=== PATIENT | female | born 1945 | race Caucasian/White ===

== ENCOUNTER 2016-05-20 16:17 | Inpatient (IN) | payer SELFPAY ==
[~2016-05-20 16:17] MED LIST: BUPIVACAINE HCL/PF 0.5% (5MG/ML) 10 ML VIAL IJ ONE
[2016-05-20] MEDS ORDERED: SODIUM CHLORIDE 1,000 ML IV STA (16:50)
[2016-05-20] MEDS ORDERED: morphine CARPU-JECT 2 MG/1 ML DISP.SYRIN IVPUSH ONE ×3 (16:50→23:27)
--- NOTE | 2016-05-20 17:06 | PDOC ---
History of Present Illness - General History Source: Patient Exam Limitations: No Limitations <Eric Fernandez - Last Filed: 05/20/16 20:30> - General History Source: Patient, Family, Old Records Exam Limitations: No Limitations - History of Present Illness Initial Comments: 05/20/16 17:26 The patient is a 70 year old female, with a significant past medical history of questionable HTN, who presents to the emergency department with right flank pain onset today while at [employer]. She describes her pain as ranging from mild to moderate, with radiation to the right lower quadrant. She denies any modifying factors. She notes that she took Tylenol for the pain, with minimal relief of her symptoms. The patient denies chest pain, shortness of breath, headache and dizziness. Denies fever, chills, nausea, vomit, diarrhea and constipation. Denies dysuria, frequency, urgency and hematuria. Allergies: None Past surgical history: None reported Social history: No alcohol, tobacco or drug use reported <Vu Roberson - Last Filed: 05/20/16 20:33> - General Chief Complaint: Pain, Acute Stated Complaint: PAIN, ACUTE Time Seen by Provider: 05/20/16 16:39 Past History - Past Medical History HTN: Yes (? no taking any meds, has no PMD) - Psycho/Social/Smoking Cessation Hx Suicidal Ideation: No Smoking History: Never smoked Information on smoking cessation initiated: No Hx Alcohol Use: No Drug/Substance Use Hx: No Substance Use Type: None <Eric Fernandez - Last Filed: 05/20/16 20:30> <Vu Roberson - Last Filed: 05/20/16 20:33> - Past Medical History Allergies/Adverse Reactions: Allergies Allergy/AdvReac Type Severity Reaction Status Date / Time No Known Allergies Allergy Verified 05/20/16 16:22 Home Medications: Ambulatory Orders NK [No Known Home Medication] 05/20/16 Review of Systems - Review of Systems Able to Perform ROS?: Yes Comments:: 05/20/16 17:25 GENERAL/CONSTITUTIONAL: No fever or chills. No weakness. HEAD, EYES, EARS, NOSE AND THROAT: No change in vision. No ear pain or discharge. No sore throat. CARDIOVASCULAR: No chest pain or shortness of breath RESPIRATORY: No cough, wheezing, or hemoptysis. GASTROINTESTINAL: +Right lower quadrant pain. No nausea, vomiting, diarrhea or constipation. GENITOURINARY: +Right flank pain. No dysuria, frequency, or change in urination. MUSCULOSKELETAL: No joint or muscle swelling or pain. No neck or back pain. SKIN: No rash NEUROLOGIC: No headache, vertigo, loss of consciousness, or change in strength/ sensation. ENDOCRINE: No increased thirst. No abnormal weight change HEMATOLOGIC/LYMPHATIC: No anemia, easy bleeding, or history of blood clots. ALLERGIC/IMMUNOLOGIC: No hives or skin allergy. <Vu Roberson - Last Filed: 05/20/16 20:33> *Physical Exam - Vital Signs Last Vital Signs Temp Pulse Resp BP Pulse Ox 98.1 F 83 19 150/81 93 L 05/20/16 16:19 05/20/16 16:19 05/20/16 16:19 05/20/16 16:19 05/20/16 16:19 <Eric Fernandez - Last Filed: 05/20/16 20:30> - Vital Signs Last Vital Signs Temp Pulse Resp BP Pulse Ox 98.1 F 83 19 150/81 93 L 05/20/16 16:19 05/20/16 16:19 05/20/16 16:19 05/20/16 16:19 05/20/16 16:19 - Physical Exam Comments: 05/20/16 17:25 GENERAL: Awake, alert, and fully oriented, in no acute distress HEAD: No signs of trauma, normocephalic, atraumatic EYES: PERRLA, EOMI, sclera anicteric, conjunctiva clear ENT: Auricles normal inspection, hearing grossly normal, nares patent, oropharynx clear without exudates. Moist mucosa NECK: Normal ROM, supple, no lymphadenopathy, JVD, or masses LUNGS: No distress, speaks full sentences, clear to auscultation bilaterally HEART: Regular rate and rhythm, normal S1 and S2, no murmurs, rubs or gallops, peripheral pulses normal and equal bilaterally. ABDOMEN: +Mid right abdominal tenderness to palpation. Soft, normoactive bowel sounds. No guarding, no rebound. No masses MUSCULOSKELETAL: +Right CVA tenderness. EXTREMITIES: Normal inspection, Normal range of motion, no edema. No clubbing or cyanosis. NEUROLOGICAL: Cranial nerves II through XII grossly intact. Normal speech, normal gait, no focal sensorimotor deficits SKIN: Warm, Dry, normal turgor, no rashes or lesions noted. <Vu Roberson - Last Filed: 05/20/16 20:33> ED Treatment Course - LABORATORY CBC & Chemistry Diagram: 05/20/16 17:50 05/20/16 17:50 - RADIOLOGY Radiology Studies Ordered: Category Date Time Status SPIRAL- RENAL-STONE CT [CT] Stat CT Scan 05/20/16 16:50 Ordered <Eric Fernandez - Last Filed: 05/20/16 20:30> - LABORATORY CBC & Chemistry Diagram: 05/20/16 17:50 05/20/16 17:50 - RADIOLOGY Radiograph Interpretation: 05/20/16 20:31 CT spiral stone without contrast Reviewed by: Dr. Sonny Ambriz Impression: Acute appendicitis is identified. No abscess is seen. <Vu Roberson - Last Filed: 05/20/16 20:33> Medical Decision Making - Medical Decision Making 05/20/16 17:01 A portion of this note was written by my scribe, under my supervision. Vital Signs Temp Pulse Resp BP Pulse Ox 98.1 F 83 19 150/81 93 L 05/20/16 16:19 05/20/16 16:19 05/20/16 16:19 05/20/16 16:19 05/20/16 16:19 70 year old female with no past medical history presents with R flank pain radiating to RLQ pain since this morning. Patient woke up this morning. States that the pain is constant. No nausea, vomiting, dysuria, hematuria, fevers. Denies prior history of kidney stones. Differential includes renal colic vs. pyelonephritis vs. less likely appendicitis. Labs, UA, spiral CT and reassess. 05/20/16 20:30 CBC, BMP 05/20/16 17:50 05/20/16 17:50 CMP Sodium 137 mmol/L (136-145) 05/20/16 17:50 Potassium 3.9 mmol/L (3.5-5.1) 05/20/16 17:50 Chloride 98 mmol/L (98-107) 05/20/16 17:50 Carbon Dioxide 28 mmol/L (21-32) 04/12/17 17:50 Anion Gap 11 (8-16) 05/20/16 17:50 BUN 10 mg/dL (7-18) 05/20/16 17:50 Creatinine 0.9 mg/dL (0.55-1.02) 05/20/16 17:50 Creat Clearance w eGFR > 60 (>60) 05/20/16 17:50 Random Glucose 112 mg/dL (74-106) H 05/20/16 17:50 Calcium 8.9 mg/dL (8.5-10.1) 05/20/16 17:50 Total Bilirubin 0.7 mg/dL (0.2-1.0) 05/20/16 17:50 AST 24 U/L (15-37) 05/20/16 17:50 ALT 21 U/L (12-78) 05/20/16 17:50 Alkaline Phosphatase 95 U/L (45-117) 05/20/16 17:50 Creatine Kinase 119 IU/L (26-192) 05/20/16 17:24 Troponin I < 0.02 ng/ml (0.00-0.05) 05/20/16 17:24 Total Protein 8.7 g/dl (6.4-8.2) H 05/20/16 17:50 Albumin 3.9 g/dl (3.4-5.0) 05/20/16 17:50 Lipase 126 U/L (73-393) 05/20/16 17:50 CT scan c/w appendicitis. Zosyn ordered. [facility] surgical team paged. Pt admitted to med/surg admission under Dr. Mckenna. Case discussed in detail with admitting physician including history, physical exam and ancillary studies. Admitting physician has assumed care for the patient, will follow all pending diagnostics and will complete the evaluation and treatment. <Eric Fernandez - Last Filed: 05/20/16 20:30> - Medical Decision Making 05/20/16 20:28 Dr. Tin Meyers was called regarding the patient at 8:24pm Dr. Meyers was consulted regarding the patient at 8:32pm [phone] <Vu Roberson - Last Filed: 05/20/16 20:33> *DC/Admit/Observation/Transfer - Discharge Dispostion Admit: Yes <Eric Fernandez - Last Filed: 05/20/16 20:30> - Attestations Scribe Attestion: 05/20/16 17:25 Documentation prepared by Vu Roberson, acting as center medical director for Eric Fernandez MD <Vu Roberson - Last Filed: 05/20/16 20:33> Diagnosis at time of Disposition: Appendicitis Qualifiers: Appendicitis type: acute appendicitis Acute appendicitis type: unspecified acute appendicitis type Qualified Code(s): K35.80 - Unspecified acute appendicitis
[2016-05-20] MEDS ORDERED: morphine CARPU-JECT 2 MG/1 ML DISP.SYRIN ONE (17:34)
[2016-05-20 18:01] LABS: BASOPHIL 0.4 % (0-2.0); EOSINOPHIL 0.1 % (0-4.5); MCH 29.1 pg (25.7-33.7); MCHC 33.1 g/dl (32.0-36.0); MEAN CELL VOLUME 87.8 fl (80-96); MEAN PLT VOLUME 7.9 fl (7.5-11.1); NEUTROPHILS 89.3 % (42.8-82.8); PLATELET COUNT 260 K/MM3 (134-434); RDW 16.1 % (11.6-15.6); WHITE BLOOD COUNT 12.9 K/mm3 (4.0-10.0)
[2016-05-20 18:05] LABS: URINE APPEARANCE CLEAR; URINE BILIRUBIN NEGATIVE (NEGATIVE); URINE COLOR LTYELLOW; URINE GLUCOSE (UA) NEGATIVE (NEGATIVE); URINE KETONE NEGATIVE (NEGATIVE); URINE LEUK ESTERASE NEGATIVE (NEGATIVE); URINE NITRITE NEGATIVE (NEGATIVE); URINE PROTEIN NEGATIVE (NEGATIVE); URINE UROBILINOGEN NEGATIVE E.U./dl (0.2-1.0)
[2016-05-20 18:24] LABS: URINE BLOOD 1+ (NEGATIVE)
[2016-05-20 18:33] LABS: ALBUMIN 3.9 g/dl (3.4-5.0); ALK PHOS 95 U/L (45-117); ANION GAP 11 (8-16); BILIRUBIN,TOTAL 0.7 mg/dL (0.2-1.0); CALCIUM 8.9 mg/dL (8.5-10.1); CO2 28 mmol/L (21-32); CREATININE 0.9 mg/dL (0.55-1.02); GLUCOSE,RANDOM 112 mg/dL (74-106); SGOT/AST 24 U/L (15-37); SGPT/ALT 21 U/L (12-78); TOT PROT 8.7 g/dl (6.4-8.2)
[2016-05-20 18:41] LABS: TROPONIN I < 0.02 ng/ml (0.00-0.05)
[2016-05-20 19:09] LABS: URINE RBC 3 /hpf (0-3); URINE WBC 2 /hpf (3-5)
[2016-05-20] MEDS ORDERED: PIPERACILLIN/TAZOB 3.375 GM/50 ML PRE-DOCKED IVPB ONE ×2 (20:14→23:27)
[2016-05-20] MEDS ORDERED: morphine CARPU-JECT 2 MG/1 ML DISP.SYRIN IVPUSH PRN ×2 (21:06→23:27)
[2016-05-20] MEDS ORDERED: SODIUM CHLORIDE 1,000 ML IV SCH (21:15)
--- NOTE | 2016-05-20 21:18 | HP ---
CHIEF COMPLAINT: Abdominal pain PCP: none HISTORY OF PRESENT ILLNESS: This is a 70 year old female with a questionable history of HTN who presented to the ED with right flank pain radiating to her RLQ since 5am. Pt denies N/V/D and states she is otherwise feeling fine. ER course was notable for: (1) WBC 12.9 (2) CT c/w acute appendicitis Recent Travel: pt denies PAST MEDICAL HISTORY: HTN as per pt, but never took any medications for it. PAST SURGICAL HISTORY: pt denies Social History: Smoking: previous, not in many years Alcohol: pt denies Drugs: pt denies Allergies No Known Allergies Allergy (Verified 05/20/16 16:22) HOME MEDICATIONS: 3 Medication Instructions Recorded NK [No Known Home Medication] 05/20/16 REVIEW OF SYSTEMS CONSTITUTIONAL: Absent: fever, chills, diaphoresis, generalized weakness, malaise, loss of appetite, weight change HEENT: Absent: rhinorrhea, nasal congestion, throat pain, throat swelling, difficulty swallowing, mouth swelling, ear pain, eye pain, visual changes CARDIOVASCULAR: Absent: chest pain, syncope, palpitations, irregular heart rate, lightheadedness , peripheral edema RESPIRATORY: Absent: cough, shortness of breath, dyspnea with exertion, orthopnea, wheezing, stridor, hemoptysis GASTROINTESTINAL: Present: abdominal pain Absent: abdominal distension, nausea, vomiting, diarrhea, constipation, melena, hematochezia GENITOURINARY: Absent: dysuria, frequency, urgency, hesitancy, hematuria, flank pain, genital pain MUSCULOSKELETAL: Absent: myalgia, arthralgia, joint swelling, back pain, neck pain SKIN: Absent: rash, itching, pallor HEMATOLOGIC/IMMUNOLOGIC: Absent: easy bleeding, easy bruising, lymphadenopathy, frequent infections ENDOCRINE: Absent: unexplained weight gain, unexplained weight loss, heat intolerance, cold intolerance NEUROLOGIC: Absent: headache, focal weakness or paresthesias, dizziness, unsteady gait, seizure, mental status changes, bladder or bowel incontinence PSYCHIATRIC: Absent: anxiety, depression, suicidal or homicidal ideation, hallucinations. PHYSICAL EXAMINATION Vital Signs - 24 hr 3 05/20/16 16:19 Temperature 98.1 F Pulse Rate 83 Respiratory 19 Rate Blood Pressure 150/81 O2 Sat by Pulse 93 L Oximetry (%) GENERAL: Awake, alert, and fully oriented, in no acute distress. HEAD: Normal with no signs of trauma. EYES: Pupils equal, round and reactive to light, extraocular movements intact, sclera anicteric, conjunctiva clear. No lid lag. EARS, NOSE, THROAT: Ears normal, nares patent, oropharynx clear without exudates. Moist mucous membranes. NECK: Normal range of motion, supple without lymphadenopathy, JVD, or masses. LUNGS: Breath sounds equal, clear to auscultation bilaterally. No wheezes, and no crackles. No accessory muscle use. HEART: Regular rate and rhythm, normal S1 and S2 without murmur, rub or gallop. ABDOMEN: Soft, not distended, normoactive bowel sounds, no guarding, no rebound , no masses. No hepatomegaly or splenomegaly. Tender RLQ MUSCULOSKELETAL: Normal range of motion at all joints. No bony deformities or tenderness. No CVA tenderness. UPPER EXTREMITIES: 2+ pulses, warm, well-perfused. No cyanosis. No clubbing. No peripheral edema. LOWER EXTREMITIES: 2+ pulses, warm, well-perfused. No calf tenderness. No peripheral edema. NEUROLOGICAL: Cranial nerves II-XII intact. Normal speech. Normal gait. PSYCHIATRIC: Cooperative. Good eye contact. Appropriate mood and affect. SKIN: Warm, dry, normal turgor, no rashes or lesions noted, normal capillary refill. Laboratory Results - last 24 hr 3 05/20/16 05/20/16 05/20/16 17:24 17:50 17:50 WBC 12.9 H RBC 5.20 Hgb 15.1 Hct 45.7 H MCV 87.8 MCHC 33.1 RDW 16.1 H Plt Count 260 MPV 7.9 Neutrophils % 89.3 H Lymphocytes % 7.9 L Monocytes % 2.3 L Eosinophils % 0.1 Basophils % 0.4 Sodium Potassium Chloride Carbon Dioxide Anion Gap BUN Creatinine Creat Clearance w eGFR Random Glucose Calcium Total Bilirubin AST ALT Alkaline Phosphatase Creatine Kinase 119 Troponin I < 0.02 Total Protein Albumin Lipase Urine Color Ltyellow Urine Appearance Clear Urine pH 7.0 Ur Specific [place] 1.014 Urine Protein Negative Urine Glucose (UA) Negative Urine Ketones Negative Urine Blood 1+ H Urine Nitrite Negative Urine Bilirubin Negative Urine Urobilinogen Negative Ur Leukocyte Esterase Negative Urine RBC 3 Urine WBC 2 Ur Epithelial Cells Few 3 05/20/16 17:50 WBC RBC Hgb Hct MCV MCHC RDW Plt Count MPV Neutrophils % Lymphocytes % Monocytes % Eosinophils % Basophils % Sodium 137 Potassium 3.9 Chloride 98 Carbon Dioxide 28 Anion Gap 11 BUN 10 Creatinine 0.9 Creat Clearance w eGFR > 60 Random Glucose 112 H Calcium 8.9 Total Bilirubin 0.7 AST 24 ALT 21 Alkaline Phosphatase 95 Creatine Kinase Troponin I Total Protein 8.7 H Albumin 3.9 Lipase 126 Urine Color Urine Appearance Urine pH Ur Specific [place] Urine Protein Urine Glucose (UA) Urine Ketones Urine Blood Urine Nitrite Urine Bilirubin Urine Urobilinogen Ur Leukocyte Esterase Urine RBC Urine WBC Ur Epithelial Cells Renal stone CT without contrast Clinical information: right flank pain radiating to RLQ multiplanar imaging was performed. There is mild fluid-filled distention of the appendix which also demonstrates mild concentric wall thickening. Periappendiceal edema is noted. No abscess is seen. There is no evidence of free intraperitoneal fluid, pneumoperitoneum or bowel obstruction. No evidence of urolithiasis or obstructive uropathy. Multiple gallbladder calculi are seen. The gallbladder otherwise demonstrates no definite abnormality. No biliary tract dilatation is seen. Small hiatal hernia. A 2.4 cm diverticulum is noted along the medial aspect of the second portion of the duodenal sweep. The liver, spleen, pancreas, adrenal glands and kidneys demonstrate no discrete noncontrast abnormality. There is no aortic aneurysm. No discrete lymphadenopathy is identified. There is no definite pelvic pathology. No gross small bowel abnormality is noted. IMPRESSION: Acute appendicitis is identified. No abscess is seen. Chest portable one view Clinical information: appendicitis No discrete infiltrate or pleural effusion is identified allowing for body habitus and portable technique. There is no definite enlargement of the cardiac silhouette given the AP projection of the study. Atherosclerotic aortic changes are noted. The mediastinum and ashwin demonstrate no obvious abnormality. Impression: No obvious radiographic abnormality is identified. ECG: NSR: Rate87, QTC 421, no ST/T changes ASSESSMENT/PLAN: 70yF with PMH of ?HTN presented with right flank pain radiating to RLQ. CT scan revealed acute appendicitis. She is being admitted for same. Acute appendicitis - zosyn 3.375mg Q8h, ID consult ordered for approval - surgical consult appreciated, likely will go to OR tonight - no medical contraindications to appendectomy. HTN - BP initially elevated, monitor and start anti-HTN if persistently elevated. DVT PPX - defer for now, start after surgery if LOS expected >48h FEN - NS @83cc/hr - Repeat BMP in am - NPO for now, advance diet postop as per surgery Dispo: Pt currently requires inpatient management of her emergent condition. Visit type - Emergency Visit Emergency Visit: Yes ED Registration Date: 05/20/16 Care time: The patient presented to the Emergency Department on the above date and was hospitalized for further evaluation of their emergent condition. - New Patient This patient is new to me today: Yes Date on this admission: 05/20/16 - Critical Care Critical Care patient: No
--- NOTE | 2016-05-20 21:37 | CONSULT ---
Consult Consult Specialty:: surgery Reason for Consultation:: appendicitis - History of Present Illness Chief Complaint: rlq pain History of Present Illness: pt with RLQ x 1 day. came into ER and had leukocytosis and CT showing appendicitis. - Alcohol/Substance Use Hx Alcohol Use: No - Smoking History Smoking history: Never smoked Home Medications - Allergies Allergies/Adverse Reactions: Allergies Allergy/AdvReac Type Severity Reaction Status Date / Time No Known Allergies Allergy Verified 05/20/16 16:22 - Home Medications Home Medications: Ambulatory Orders NK [No Known Home Medication] 05/20/16 Review of Systems - Review of Systems Constitutional: denies: Chills, Fever Eyes: denies: Blind Spots, Blurred Vision HENT: denies: Difficult Swallowing, Ear Discharge Neck: denies: Decreased ROM, Lumps Cardiovascular: denies: Chest Pain, Edema Respiratory: denies: Cough, Exercise Intolerance Gastrointestinal: reports: Abdominal Pain Genitourinary: denies: Burning, Discharge Breasts: denies: Pain, Skin Changes Musculoskeletal: denies: Back Pain, Crepitus Integumentary: denies: Blister, Bruising Neurological: denies: Change in LOC, Change in Speech Endocrine: denies: Excessive Sweating, Flushing Hematology/Lymphatic: denies: Easily Bruised, Excessive Bleeding Psychiatric: denies: Altered Sleep Pattern, Anxiety Physical Exam Vital Signs: Vital Signs Temperature 98.1 F 05/20/16 16:19 Pulse Rate 83 05/20/16 16:19 Respiratory Rate 19 05/20/16 16:19 Blood Pressure 150/81 05/20/16 16:19 O2 Sat by Pulse Oximetry (%) 93 L 05/20/16 16:19 Constitutional: Yes: No Distress, Calm Eyes: Yes: Conjunctiva Clear, EOM Intact HENT: Yes: Atraumatic, Normocephalic Neck: Yes: Supple, Trachea Midline Cardiovascular: Yes: Regular Rate and Rhythm Respiratory: Yes: Regular, CTA Bilaterally Gastrointestinal: Yes: Soft, Abdomen, Obese, Tenderness. No: Distention ...Rectal Exam: Yes: Deferred Renal/: No: CVA Tenderness - Left, CVA Tenderness - Right Breast(s): No: Nipple Inversion, Skin Changes Musculoskeletal: No: Joint Stiffness, Joint Swelling Extremities: No: Calf Tenderness, Erythema Integumentary: No: Erythema, Rash Neurological: Yes: Alert, Oriented Psychiatric: Yes: Alert, Oriented Imaging - Results Cat Scan: Report Reviewed Problem List - Problems (1) Appendicitis Assessment/Plan: for lap appy. r/b/a d/w pt and she understands and wishes to proceed. had discussion with aide of therapeutic recreation assistant at bedside. Code(s): K37 - UNSPECIFIED APPENDICITIS Qualifiers: Appendicitis type: acute appendicitis Acute appendicitis type: unspecified acute appendicitis type Qualified Code(s): K35.80 - Unspecified acute appendicitis
[2016-05-20] MEDS ORDERED: ROCURONIUM BROMIDE 50 MG/5 ML VIAL ONE (21:49)
[2016-05-20] MEDS ORDERED: SUCCINYLCHOLINE CHLORIDE 200 MG/10 ML VIAL ONE (21:49)
[2016-05-20] MEDS ORDERED: MIDAZOLAM HCL 2 MG/2 ML SINGLE DOSE VIAL ONE (21:49)
[2016-05-20] MEDS ORDERED: LIDOCAINE HCL/PF 2% SDV 5ML VIAL ONE (21:50)
[2016-05-20] MEDS ORDERED: ONDANSETRON 4 MG/2 ML VIAL ONE (22:15)
[2016-05-20] MEDS ORDERED: DEXAMETHASONE SOD PHOSPHATE 4 MG/1 ML VIAL ONE (22:15)
[2016-05-20] MEDS ORDERED: PHENYLEPHRINE HCL 10 MG/1 ML SINGLE DOSE VIAL ONE (22:31)
[2016-05-20] MEDS ORDERED: NEOSTIGMINE METHYLSULFATE 0.5 MG/ML - 10 ML MDV ONE (23:09)
[2016-05-20] MEDS ORDERED: KETOROLAC TROMETHAMINE 30 MG/1 ML VIAL ONE (23:10)
[2016-05-20] MEDS ORDERED: GLYCOPYRROLATE 0.2 MG/1 ML VIAL ONE (23:11)
[2016-05-20] MEDS ORDERED: BUPIVACAINE HCL/PF 0.5% (5MG/ML) 10 ML VIAL IJ ONE (23:11)
--- NOTE | 2016-05-20 23:17 | OP ---
Operative Note - Note: Operative Date: 05/20/16 Pre-Operative Diagnosis: appendicitis Operation: lap appendectomy Findings: appendicitis Post-Operative Diagnosis: Same as Pre-op Surgeon: Tin Meyers Anesthesia: General Estimated Blood Loss (mls): 5 Operative Report Dictated: Yes
[2016-05-20] MEDS ORDERED: OXYCODONE/APAP 5/325MG COMBO TABLET PO PRN ×2 (23:19)
[2016-05-20] MEDS ORDERED: MAGNESIUM HYDROX 2400MG/30ML ORAL SUSPENSION 30 ML CUP PO PRN (23:20)
[2016-05-20] MEDS ORDERED: oxyCODONE HCL 5 MG TABLET PO PRN ×2 (23:25→23:26)
[2016-05-20] MEDS ORDERED: ACETAMINOPHEN 325 MG TABLET (FP) PO PRN ×2 (23:25→23:26)
[2016-05-20] MEDS ORDERED: PROMETHAZINE HCL 25 MG/1 ML VIAL IVPUSH PRN (23:37)
[2016-05-20] MEDS ORDERED: HYDROmorphone HCL CARPU-JECT 1 MG/1 ML DISP.SYRIN IVPUSH PRN (23:37)
[2016-05-20] MEDS ORDERED: LACTATED RINGERS SOLUTION 1,000 ML IV SCH (23:45)
--- NOTE | 2016-05-21 01:06 | OP ---
DATE OF OPERATION: DATE OF DICTATION: 05/20/2016 PREOPERATIVE DIAGNOSIS: Appendicitis. POSTOPERATIVE DIAGNOSIS: Appendicitis. SURGERY: Laparoscopic appendectomy. SURGEON: Tin Meyers M.D. ANESTHESIA: General endotracheal anesthesia. ESTIMATED BLOOD LOSS: Minimal. OPERATIVE DETAILS: Patient was brought to the operating room after confirming name, date of , medical record number. She was placed in supine position with SCDs for DVT prophylaxis. She received appropriate perioperative antibiotics. She was then induced and intubated by the anesthesiologist. A Cho catheter was then placed under sterile conditions. She was then prepped and draped in the usual sterile fashion. A timeout was then performed. I marked off her left subcostal margin and 2 fingerbreadths below in the left upper quadrant. I created a small transverse incision with a 15 blade. I then placed a Veress needle inside the patient's abdomen, and then after 2 clicks insufflated the abdomen; however, I could not get good flow, and I was uncomfortable, as the abdominal wall was very thick, even though I was lifting up the skin with towel clamps. Therefore, I used an Optiview type trocar with a 5-mm, 0-degere scope, and then went directly into the abdomen while lifting it up anteriorly, and then once I got in the abdomen, I then insufflated the abdomen to a pressure of 15 mmHg. I then inspected the bowel, and there was no evidence of bowel injury. Then I placed a supraumbilical 12-mm trocar under direct vision and a 5-mm trocar in the left lower quadrant. It was very difficult to transilluminate the abdominal wall, because it was so massive, given her BMI of almost 40. At this point, the appendix and small bowel was tethered against the anterior abdominal wall. This was gently fractured off, and then I had to dissect the small bowel off the mesentery of the appendix, and there was quite a bit of induration, inflammation of the appendix. After carefully teasing it off, I then dissected the base of the appendix, and then fired a blue load staple at the base of the appendix, and then 2 white load staplers reduced to take the mesentery of the appendix. At this point, I placed it in a 10-mm specimen retrieval bag and sent it off the field for permanent examination. I then irrigated and aspirated out any fluid and was satisfied with the perfect hemostasis, and then I removed the appendix through the port, and then I took out the 12-mm trocar and closed it with a [id number] 0 Vicryl suture placed laparoscopically. Once I confirmed that there was no air leakage, the abdomen was then desufflated, the ports removed, and then I tied down on this [id number] Vicryl. There was some bleeding noted in the left lower quadrant, and I placed a U stitch of 3-0 chromic and this stopped all bleeding. Then I closed the left upper quadrant trocar with interrupted chromic in the dermal layer, and then the supraumbilical incision was closed with running subcutaneous Monocryl. Dermabond was then applied. The Cho catheter was then removed. All counts were correct. TIN MEYERS M.D. [id number]
[2016-05-21] MEDS: SODIUM CHLORIDE 1,000 ML IV SCH ×2 (01:28→06:32)
[2016-05-21] MEDS ORDERED: PIPERACILLIN/TAZOB 3.375 GM 50 ML IVPB SCH ×2 (02:00→06:30)
[2016-05-21 02:53] VITALS: BMI 35.2
[2016-05-21 08:13] LABS: BASOPHIL 0.1 % (0-2.0); MCH 29.1 pg (25.7-33.7); MCHC 33.1 g/dl (32.0-36.0); MEAN PLT VOLUME 8.3 fl (7.5-11.1); NEUTROPHILS 87.7 % (42.8-82.8); PLATELET COUNT 204 K/MM3 (134-434); RDW 16.1 % (11.6-15.6)
[2016-05-21 08:16] LABS: CALCIUM 7.9 mg/dL (8.5-10.1); COCKROFT - GAULT 102.408; CREATININE 0.8 mg/dL (0.55-1.02); PHOSPHOROUS 3.6 mg/dL (2.5-4.9)
--- NOTE | 2016-05-21 11:40 | EKG ---
Test Reason : Blood Pressure : / mmHG Vent. Rate : 087 BPM Atrial Rate : 087 BPM P-R Int : 182 ms QRS Dur : 092 ms QT Int : 350 ms P-R-T Axes : 049 -25 065 degrees QTc Int : 421 ms NORMAL SINUS RHYTHM NORMAL ECG NO PREVIOUS ECGS AVAILABLE Confirmed by BHAVIN MOORE MD ([id number]) on 05/21/2016 11:40:13 AM Referred By: Confirmed By:BHAVIN MOORE MD
--- NOTE | 2016-05-21 12:46 | PN ---
Progress Note, Physician Chief Complaint: less pain History of Present Illness: pt with less RLQ pain, still has some pain though. tolerating diet - Current Medication List Current Medications: Active Medications Acetaminophen (Tylenol -) 325 mg PO Q4H PRN PRN Reason: PAIN Stop: 05/23/16 23:24 Acetaminophen (Tylenol -) 650 mg PO Q4H PRN PRN Reason: PAIN Stop: 05/23/16 23:25 Sodium Chloride (Normal Saline -) 1,000 mls @ 83 mls/hr IV ASDIR GRAHAM Last Admin: 05/21/16 06:32 Dose: 83 mls/hr Piperacillin Sod/Tazobactam Sod (Zosyn 3.375gm Ivpb (Pre-Docked)) 50 mls @ 100 mls/hr IVPB Q8H-IV GRAHAM PRN Reason: Protocol Last Admin: 05/21/16 06:32 Dose: 100 mls/hr Magnesium Hydroxide (Milk Of Magnesia -) 30 ml PO DAILY PRN PRN Reason: CONSTIPATION Morphine Sulfate (Morphine Injection -) 2 mg IVPUSH Q3H PRN PRN Reason: PAIN Oxycodone HCl (Roxicodone -) 5 mg PO Q4H PRN PRN Reason: PAIN Oxycodone HCl (Roxicodone -) 10 mg PO Q4H PRN PRN Reason: PAIN - Objective Vital Signs: Vital Signs Temperature 98.1 F 05/21/16 06:00 Pulse Rate 69 05/21/16 06:00 Respiratory Rate 18 05/21/16 06:00 Blood Pressure 121/61 05/21/16 06:00 O2 Sat by Pulse Oximetry (%) 96 05/21/16 02:44 Constitutional: Yes: No Distress, Calm Gastrointestinal: Yes: Soft, Tenderness (no more guarding in RLQ, just soreness. ). No: Distention Labs: CBC, BMP 05/21/16 06:15 05/21/16 06:15 Problem List - Problems (1) Appendicitis Assessment/Plan: clear for d/c home needs rx for percocet and would give her 1 week rx for augmentin for resdiual inflammation in RLQ. f/u with me in 1-2 weeks [phone] Code(s): K37 - UNSPECIFIED APPENDICITIS Qualifiers: Appendicitis type: acute appendicitis Acute appendicitis type: unspecified acute appendicitis type Qualified Code(s): K35.80 - Unspecified acute appendicitis
--- NOTE | 2016-05-21 14:36 | PN ---
Progress Note (short form) - Note Progress Note: ANESTHESIOLOGY POST-OP CHECK 70F s/p lap appy under general anesthesia, POD #1. No acute complaints. Pain 4/ 10 - tolerable. Denies N/V, toerlating PO. Ambulating, voiding. Vital Signs Temperature 98.1 F 05/21/16 06:00 Pulse Rate 69 05/21/16 06:00 Respiratory Rate 18 05/21/16 06:00 Blood Pressure 121/61 05/21/16 06:00 O2 Sat by Pulse Oximetry (%) 96 05/21/16 02:44 Active Medications Acetaminophen (Tylenol -) 325 mg PO Q4H PRN PRN Reason: PAIN Stop: 05/23/16 23:24 Acetaminophen (Tylenol -) 650 mg PO Q4H PRN PRN Reason: PAIN Stop: 05/23/16 23:25 Sodium Chloride (Normal Saline -) 1,000 mls @ 83 mls/hr IV ASDIR GRAHAM Last Admin: 05/21/16 06:32 Dose: 83 mls/hr Piperacillin Sod/Tazobactam Sod (Zosyn 3.375gm Ivpb (Pre-Docked)) 50 mls @ 100 mls/hr IVPB Q8H-IV GRAHAM PRN Reason: Protocol Last Admin: 05/21/16 06:32 Dose: 100 mls/hr Magnesium Hydroxide (Milk Of Magnesia -) 30 ml PO DAILY PRN PRN Reason: CONSTIPATION Morphine Sulfate (Morphine Injection -) 2 mg IVPUSH Q3H PRN PRN Reason: PAIN Oxycodone HCl (Roxicodone -) 5 mg PO Q4H PRN PRN Reason: PAIN Oxycodone HCl (Roxicodone -) 10 mg PO Q4H PRN PRN Reason: PAIN Gen: awake, alert No apparent anesthesia complications. Pain well controlled. Continue management as per primary team.
--- NOTE | 2016-05-21 14:44 | DS ---
Physical Exam: SUBJECTIVE: Patient seen and examined. Sh neal has RLQ pain, she is tolerating meals well. Family at bedside OBJECTIVE: Vital Signs Period Temp Pulse Resp BP Sys/Aden Pulse Ox Last 24 Hr 98 F-99.3 F 60-80 17-21 112-180/61-80 96-100 PE Neuro: alert, awake, cn 2-12intact Pulm: mild basilar crackles otherwise clear CV: s1 s2 rrr no mrg Abd: RLQ tenderness, x3 port incisions CDI +BS mild distention Ext: warm no le edema Laboratory Results - last 24 hr 05/21/16 05/21/16 06:15 06:15 WBC 18.0 H D RBC 4.52 Hgb 13.2 D Hct 39.8 MCV 88.0 MCHC 33.1 RDW 16.1 H Plt Count 204 D MPV 8.3 Neutrophils % 87.7 H Lymphocytes % 8.6 Monocytes % 3.6 L Eosinophils % 0.0 D Basophils % 0.1 Sodium 137 Potassium 3.8 Chloride 101 Carbon Dioxide 27 Anion Gap 9 BUN 12 Creatinine 0.8 Random Glucose 147 H D Calcium 7.9 L Phosphorus 3.6 Magnesium 2.0 HOSPITAL COURSE: Date of Admission:05/20/16 Date of Discharge: 05/21/16 Minutes to complete discharge: 35 Discharge Summary Reason For Visit: APPENDICITIS Current Active Problems Appendicitis (Acute) Hospital Course: Initial Hospital Course: Briefly, this 70 year old female with a questionable history of HTN presented with right flank pain radiating to her RLQ since 5am. CTAP showed mild fluid filled distention of appendix with mild concentric wall thickening. mariya appendiceal edema noted. no abscess Subsequent Hospital Course/Progress Note/Discharge Summary by a/p: Assessment: 70 year old female with PMH of ?HTN admitted with acute appendicitis Plan: 1. Acute appendicitis - Zosyn x1 dose - Home with augmentin 875 BID x7 days - Surgery follow up in 2 weeks 2. HTN - Stable on discharge Dispo: - Home with abx and surgery follow up Condition: Stable - Instructions Diet, Activity, Other Instructions: Please return to the ED for any new, persistent, or worsening symptoms. Follow up with your PCP in 1 week Take antibiotics as directed and until completed Take pain medication as needed Walk around every hour while awake Followup with Surgeon in 2 weeks (referral enclose: [phone]) Referrals: Tin Meyers MD [Staff Physician] - Disposition: HOME - Home Medications Comprehensive Discharge Medication List: Ambulatory Orders Amoxicillin/Potassium Clav [Augmentin 875-125 Tablet] 1 each PO BID #14 tablet 05/21/16 Oxycodone HCl/Acetaminophen [Percocet 5-325 mg Tablet] 1 tab PO Q6H PRN #20 tablet MDD 4 05/21/16 This patient is new to me today: Yes Date on this admission: 05/21/16 Emergency Visit: Yes ED Registration Date: 05/20/16 Care time: The patient presented to the Emergency Department on the above date and was hospitalized for further evaluation of their emergent condition. Critical Care patient: No - Discharge Referral Referred to [facility] No
--- NOTE | 2016-05-21 15:00 | CONSULT ---
Consult Consult Specialty:: infectious diseases Reason for Consultation:: appendicits - History of Present Illness Chief Complaint: abd pain History of Present Illness: The patient is a 70 year old female, with a significant past medical history of questionable HTN, who presents to the emergency department with right flank pain onset today while [place]. She describes her pain as ranging from mild to moderate, with radiation to the right lower quadrant. She denies any modifying factors. She notes that she took Tylenol for the pain, with minimal relief of her symptoms. patient was worked up and found to have appendicitis patient was tken to the or and lap appy was done patient did well receive abx currently patient feeling well and no complaints - History Source History Provided By: Patient, Family Member Limitations to Obtaining History: Language Barrier - Past Medical History ...: No - Alcohol/Substance Use Hx Alcohol Use: No - Smoking History Smoking history: Never smoked Have you smoked in the past 12 months: No Home Medications - Allergies Allergies/Adverse Reactions: Allergies Allergy/AdvReac Type Severity Reaction Status Date / Time No Known Allergies Allergy Verified 05/20/16 16:22 - Home Medications Home Medications: Ambulatory Orders Amoxicillin/Potassium Clav [Augmentin 875-125 Tablet] 1 each PO BID #14 tablet 05/21/16 Oxycodone HCl/Acetaminophen [Percocet 5-325 mg Tablet] 1 tab PO Q6H PRN #20 tablet MDD 4 05/21/16 Review of Systems - Review of Systems Constitutional: reports: Fever, Other Eyes: reports: No Symptoms HENT: reports: No Symptoms Neck: reports: No Symptoms Cardiovascular: reports: No Symptoms Respiratory: reports: No Symptoms Gastrointestinal: reports: Abdominal Pain Genitourinary: reports: No Symptoms Musculoskeletal: reports: No Symptoms Integumentary: reports: No Symptoms Neurological: reports: No Symptoms Endocrine: reports: No Symptoms Hematology/Lymphatic: reports: No Symptoms Psychiatric: reports: No Symptoms Physical Exam Vital Signs: Vital Signs Temperature 98.1 F 05/21/16 06:00 Pulse Rate 69 05/21/16 06:00 Respiratory Rate 18 05/21/16 06:00 Blood Pressure 121/61 05/21/16 06:00 O2 Sat by Pulse Oximetry (%) 96 05/21/16 02:44 Constitutional: Yes: Well Nourished, No Distress, Obese Eyes: Yes: Conjunctiva Clear HENT: Yes: Atraumatic Neck: Yes: Supple, Trachea Midline Cardiovascular: Yes: Regular Rate and Rhythm Respiratory: Yes: Regular, CTA Bilaterally Gastrointestinal: Yes: Soft, Hypoactive Bowel Sounds Musculoskeletal: Yes: WNL Extremities: Yes: WNL Wound/Incision: Yes: Clean/Dry Neurological: Yes: Alert, Oriented Psychiatric: Yes: Alert, Oriented Labs: CBC, BMP 05/21/16 06:15 05/21/16 06:15 Imaging - Results Chest X-ray: Report Reviewed, Image Reviewed Cat Scan: Report Reviewed, Image Reviewed Assessment/Plan Problems (1) Appendicitis Assessment/Plan: for lap appy. r/b/a d/w pt and she understands and wishes to proceed. had discussion with aide of interpreter for the deaf at bedside. Code(s): K37 - UNSPECIFIED APPENDICITIS Qualifiers: Appendicitis type: acute appendicitis Acute appendicitis type: unspecified acute appendicitis type Qualified Code(s): K35.80 - Unspecified acute appendicitis plan agree with switching to po abx rest ct as per surgery
[2016-05-21 15:12] VITALS: BP 140/88; PULSE 63; TEMP 98.3
--- NOTE | 2016-05-26 15:09 | PATH ---
Surgical Pathology Report Patient Name: KRISTA MENDEZ [facility]. Rec. 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 SERRATED ADENOMA PRESENT AT THE APPENDIX RESECTION MARGIN. NO DISSECTING MUCIN SEEN (SEE COMMENT). NO HIGH-GRADE DYSPLASIA OR INVASIVE CARCINOMA IDENTIFIED. ACUTE APPENDICITIS WITH FOCAL PERFORATION AND PERIAPPENDICITIS. Comment: The sections show serrated adenoma in the lumen of the appendix. Adenoma is present at the at the proximal resection margin. No high-grade dysplasia or invasive carcinoma is identified. The sections also show acute appendicitis with focal perforation and periappendicitis. Extruded extracellular mucin is present in the area of perforation; however, does not appear to be dissecting surrounding tissues. Clinical correlations and follow up are suggested. Electronically Signed Jian Hernandez M.D. Gross Description Received in formalin, labeled "appendix" is a 5 cm in length vermiform appendix with a stapled margin of resection and abundant attached fat. The serosa is chairez-brown with attached exudate. Sectioning reveals an unremarkable lumen. The wall of the appendix averages 0.2 cm. in thickness. [employer] Supervisor sections are submitted in one cassette; additional sections are submitted as follows: 2- margin of resection; [id number] of specimen. 05/21/2016 [facility]05/21/2016
== END 2016-05-21 15:40 | disposition home or self-care (01) | DRG 225 ==
LOC: JER 16:17 → JERBED 20:31 → J5S 05-21 01:18
PROVIDERS: ADMIT Internal Medicine; ATTEND Nurse Practitioner Acute Care
PROC: 0DTJ4ZZ Resection of Appendix, Percutaneous Endoscopic Approach (ICD-10-PCS; principal; 2016-05-20 21:53)
DX: K35.89 Other acute appendicitis (principal); I10 Essential (primary) hypertension; D72.828 Other elevated white blood cell count; E66.8 Other obesity; Z68.35 Body mass index [BMI] 35.0-35.9, adult
CPT/HCPCS: 36415; 71010-TC; 74176; 80048; 80053; 81003; 81015; 82550; 83690; 83735; 84100; 84484; 85025; 87086; 88304-TC; 93005; 93010; 94760; 99282-25

== ENCOUNTER 2016-09-12 13:28 | Emergency (ER) | payer SELFPAY ==
[2016-09-12 13:42] VITALS: BP 175/100; PULSE 64; TEMP 97.9; BMI 31.3
[2016-09-12] MEDS ORDERED: IBUPROFEN 400 MG TABLET (FP) PO ONE ×2 (14:14→14:18)
--- NOTE | 2016-09-12 14:21 | PDOC ---
History of Present Illness - General History Source: Patient - History of Present Illness Occurred: reports: other Severity: reports: moderate Pain Location: reports: chest Method of Injury: Yes: fall <Savanna Roche Last Filed: 09/12/16 15:25> <Jourdan Shane - Last Filed: 09/17/16 00:36> - General Chief Complaint: Pain, Acute Stated Complaint: PAIN Time Seen by Provider: 09/12/16 13:59 Past History - Past Medical History Anemia: No Asthma: No Cancer: No Cardiac Disorders: No CVA: No COPD: No CHF: No Dementia: No Diabetes: No GI Disorders: No Disorders: No HTN: Yes (? no taking any meds, has no PMD) Hypercholesterolemia: No Liver Disease: No Seizures: No Thyroid Disease: No - Surgical History Appendectomy: Yes - Psycho/Social/Smoking Cessation Hx Suicidal Ideation: No Smoking History: Never smoked Have you smoked in the past 12 months: No Information on smoking cessation initiated: No Hx Alcohol Use: No Drug/Substance Use Hx: No Substance Use Type: None Hx Substance Use Treatment: No <Savanna Roche Last Filed: 09/12/16 15:25> <Jourdan Shane - Last Filed: 09/17/16 00:36> - Past Medical History Allergies/Adverse Reactions: Allergies Allergy/AdvReac Type Severity Reaction Status Date / Time No Known Allergies Allergy Verified 09/12/16 13:35 Home Medications: Ambulatory Orders NK [No Known Home Medication] 09/12/16 Review of Systems - Review of Systems Respiratory: No: Shortness of Breath Cardiac (ROS): Yes: Chest Pain. No: Lightheadedness, Palpitations, Syncope Neurological: No: Headache, Dizziness <Savanna Roche Last Filed: 09/12/16 15:25> *Physical Exam - Vital Signs Last Vital Signs Temp Pulse Resp BP Pulse Ox 97.9 F 64 19 175/100 96 09/12/16 13:35 09/12/16 13:35 09/12/16 13:35 09/12/16 13:35 09/12/16 13:35 - Physical Exam General Appearance: Yes: Appropriately Dressed. No: Apparent Distress HEENT: positive: Normal Voice Neck: positive: Supple Respiratory/Chest: positive: Chest Tender, Lungs Clear, Normal Breath Sounds. negative: Respiratory Distress Cardiovascular: positive: Regular Rate, S1, S2 Extremity: positive: Normal Inspection Integumentary: positive: Dry, Warm Neurologic: positive: Fully Oriented, Alert, Normal Mood/Affect <SandgapSavanna - Last Filed: 09/12/16 15:25> - Vital Signs Last Vital Signs Temp Pulse Resp BP Pulse Ox 97.9 F 64 19 175/100 96 09/12/16 13:35 09/12/16 13:35 09/12/16 13:35 09/12/16 13:35 09/12/16 13:35 <Jourdan Shane - Last Filed: 09/17/16 00:36> ED Treatment Course - RADIOLOGY Radiology Studies Ordered: Category Date Time Status RIBS-LEFT SIDE [RAD] Stat Radiology 09/12/16 14:14 Ordered <MelchorSavanna - Last Filed: 09/12/16 15:25> - Medications Given in the ED: ED Medications Discontinued Medications Generic Name Dose Route Start Last Admin Trade Name Jennifer PRN Reason Stop Dose Admin Ibuprofen 800 mg 09/12/16 14:14 09/12/16 14:21 Motrin - PO 09/12/16 14:15 800 mg ONCE ONE Administration <Jourdan Shane - Last Filed: 09/17/16 00:36> Medical Decision Making - Medical Decision Making 09/12/16 14:16 71 yo F, denies any pmhx and not on any meds including blood thinners. BIB grandson for pain to L chest s/p fall 3 days ago. As per grandson who witnessed fall, pt tripped and fell at home hitting L chest against plastic stand of fan. Beck sbeen c/o pain since, no SOB. Has not taken anything for pain. Did not hit head and no LOC, BECK, dizziness, n/v. Pt denies any other injuries See exam L chest wall pain s/p mechanical fall 3 days ago Witnessed by family w/ no head impact or LOC Not on blood thinners Has ttp to L chest No stepoffs/crepitus to suggest fx -pain control -XR 09/12/16 14:20 09/12/16 15:27 XR negative for any acute pathology. Pt better w/ meds. Dc w/ OTC meds as needed and PMD f/u 09/12/16 15:29 <Savanna Roche - Last Filed: 09/12/16 15:25> - Medical Decision Making 09/17/16 00:35 The patient was seen and evaluated in conjunction with KENDRICK Roche under my direct supervision, ancillary studies were reviewed. I agree with the plan as outlined by KENDRICK Roche . <Jourdan Shane - Last Filed: 09/17/16 00:36> *DC/Admit/Observation/Transfer <Savanna Roche - Last Filed: 09/12/16 15:25> <Jourdan Shane - Last Filed: 09/17/16 00:36> Diagnosis at time of Disposition: Chest wall contusion Qualifiers: Encounter type: initial encounter Laterality: left Qualified Code(s): S20.212A - Contusion of left front wall of thorax, initial encounter - Discharge Dispostion Disposition: HOME Condition at time of disposition: Good - Patient Instructions Printed Discharge Instructions: DI for Contusion Additional Instructions: Your XR was negative for fracture. Take motrin or tylenol as needed for pain Please follow up with your PMD Print Language: GUATEMALAN
== END 2016-09-12 16:00 | disposition home or self-care (01) ==
LOC: JER 13:28
DX: S20.212A Contusion of left front wall of thorax, initial encounter (principal); W01.198A Fall on same level from slipping, tripping and stumbling with subsequent striking against other object, initial encounter; Y93.01 Activity, walking, marching and hiking; Y92.009 Unspecified place in unspecified non-institutional (private) residence as the place of occurrence of the external cause
CPT/HCPCS: 71101-TC; 99282-25